=== PATIENT | male | born 2000 | race Native Hawaiian/Other Pacific Islander ===

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

== ENCOUNTER 2019-02-25 11:33 | Emergency (ER) | payer OTHER ==
[~2019-02-25] VITALS: Ht 177.8 cm; Wt 79.4 kg
[2019-02-25 12:35] VITALS: BP 108/62; TEMP 97.9
== END 2019-02-25 12:35 | disposition home or self-care (01) ==
LOC: ED 11:33
DX: R51 Headache (principal)
CPT/HCPCS: 99281